=== PATIENT | female | born 1975 | race Caucasian/White ===

== ENCOUNTER 2017-09-24 05:45 | Emergency (ER) | payer BC, MEDICAID ==
[2017-09-24 06:45] VITALS: BP 131/84
[2017-09-24] MEDS ORDERED: Acetaminophen/oxyCODONE 325-5 MG Tab PO ONE (07:16)
[2017-09-24] MEDS ORDERED: Ibuprofen 600 MG Tab PO ONE (07:17)
--- NOTE | 2017-09-24 07:18 | EDM.PDOC ---
ED HPI GENERAL MEDICAL PROBLEM - General Chief Complaint: Lower Extremity Injury/Pain Stated Complaint: ROLLED LEFT ANKLE Time Seen by Provider: 09/24/17 05:51 Source of Information: Reports: Patient History Limitations: Reports: No Limitations - History of Present Illness INITIAL COMMENTS - FREE TEXT/NARRATIVE: Rolled ankle this morning getting ready for work. Has some swelling. Here for evaluation. Onset: Today Onset Date: 09/24/17 Duration: Minutes:, Constant Location: Reports: Lower Extremity, Left Quality: Reports: Ache Severity: Moderate Improves with: Reports: Rest Worsens with: Reports: Movement Context: Reports: Other (Stepped on dog bone this morning.) Associated Symptoms: Reports: No Other Symptoms Treatments OPERATIONS RECRUITER: Reports: Other (see below) (none) - Related Data Allergies Allergy/AdvReac Type Severity Reaction Status Date / Time bee sting Allergy Severe Difficulty Uncoded 09/24/17 06:45 Breathing Home Meds: Home Meds EPINEPHrine [Epipen 2-Johnny] 1 injection SUBCUT DAILY PRN 05/15/14 [History] Loratadine [Claritin] 10 mg PO DAILY PRN 05/18/16 [History] Omeprazole 20 mg PO DAILY 10/24/16 [History] Meclizine [Antivert] 25 mg PO TID PRN 10/26/16 [History] atorvaSTATin [Lipitor] 20 mg PO BEDTIME 10/26/16 [History] metroNIDAZOLE [metroNIDAZOLE 0.75% Gel] 1 film TOP BID 10/26/16 [History] Past Medical History HEENT 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: Allergic Rhinitis, Impaired Vision Other HEENT History: seasonal allergies Cardiovascular 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: High Cholesterol Other Respiratory History: SOB with bee stings Gastrointestinal 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: Cholelithiasis, GERD 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: , Other (See Below) Other OB/BYN History: abnormal cycles Musculoskeletal 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: Arthritis Neurological 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: Migraines, Vertigo Endocrine/Metabolic 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: Diabetes, Type II, Obesity/BMI 30+, Other (See Below) Other Endocrine/Metabolic History: diabetes controlled with diet and exercise Dermatologic 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: Other (See Below) Other Dermatologic History: Rosacea - Infectious Disease History Infectious Disease 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: Chicken Pox - Past Surgical History HEENT Surgical 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: Oral Surgery GI Surgical 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: Cholecystectomy Musculoskeletal Surgical 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: Arthroscopic Knee, Other (See Below) Social & Family History - Family History Family Medical History: Noncontributory - Tobacco Use Smoking Status *Q: Never Smoker Used Tobacco, but Quit: Yes Month Tobacco Last Used: 2012 Second Hand Smoke Exposure: No - Caffeine Use Caffeine Use: Reports: Coffee, Tea - Alcohol Use Days Per Week of Alcohol Use: 0 - Recreational Drug Use Recreational Drug Use: No Review of Systems - Review of Systems Review Of Systems: See Below Constitutional: Reports: No Symptoms Musculoskeletal: Reports: Leg Pain (L ankle pain) Skin: Reports: No Symptoms Neurological: Reports: No Symptoms ED EXAM, GENERAL - Physical Exam Exam: See Below Exam Limited By: No Limitations General Appearance: Alert, WD/WN, No Apparent Distress, Obese Extremities: Other (L ankle swelling present, negative anterior drawer sign. No proximal fibula pain. Minimal lateral foot pain. ) Neurological: Alert, Oriented, CN II-XII Intact, Normal Cognition Course - Vital Signs Last Recorded V/S: Last Vital Signs Temp 36.5 C 09/24/17 06:44 Pulse 89 09/24/17 06:44 Resp 16 09/24/17 06:44 BP 131/84 09/24/17 06:44 Pulse Ox 96 09/24/17 06:44 - Orders/Labs/Meds Orders: Active Orders 24 hr Category Date Time Status Ankle Min 3V Lt [CR] Stat Exams 09/24/17 06:39 Taken Meds: Medications Discontinued Medications Generic Name Dose Route Start Last Admin Trade Name Freq PRN Reason Stop Dose Admin Ibuprofen 600 mg 09/24/17 07:17 Motrin PO 09/24/17 07:18 ONETIME ONE Oxycodone/Acetaminophen 1 tab 09/24/17 07:16 Percocet 325-5 Mg PO 09/24/17 07:17 ONETIME ONE - Radiology Interpretation Free Text/Narrative:: L ankle X-ray-soft tissue swelling, no acute fx's. Old chip fx's present. Air splint applied. Departure - Departure Time of Disposition: 07:30 Disposition: Home, Self-Care 01 Condition: Good Clinical Impression: Ankle sprain Qualifiers: Encounter type: initial encounter Involved ligament of ankle: calcaneofibular ligament Laterality: left Qualified Code(s): S93.412A - Sprain of calcaneofibular ligament of left ankle, initial encounter - Discharge Information Referrals: Laci Gutierrez MD [Primary Care Provider] - Forms: ED Department Discharge
--- NOTE | 2017-09-24 09:20 | CR ---
Ankle Min 3V Lt FINDINGS: There is normal alignment. There is no evidence of acute fracture. There is a corticated cindy ne fragment adjacent to the tip of the fibula which likely reflects an old injury. The ankle mortise appears intact. There is lateral soft tissue swelling. IMPRESSION: Lateral soft tissue swelling without evidence for acute fracture.
== END 2017-09-24 07:43 | disposition home or self-care (01) ==
LOC: JP.ED 05:45
DX: S93.412A Sprain of calcaneofibular ligament of left ankle, initial encounter (principal); E78.00 Pure hypercholesterolemia, unspecified; K21.9 Gastro-esophageal reflux disease without esophagitis; E11.9 Type 2 diabetes mellitus without complications; Z87.891 Personal history of nicotine dependence; Z79.899 Other long term (current) drug therapy; Z91.030 Bee allergy status; X50.9XXA Other and unspecified overexertion or strenuous movements or postures, initial encounter
CPT/HCPCS: 73610; 99284; A9270

== ENCOUNTER 2018-04-21 17:09 | Emergency (ER) | payer BC ==
[2018-04-21 17:21] VITALS: BP 153/103
--- NOTE | 2018-04-21 17:50 | EDM.PDOC ---
ED HPI GENERAL MEDICAL PROBLEM - General Chief Complaint: Respiratory Problem Stated Complaint: DOESN'T FEEL WELL Time Seen by Provider: 04/21/18 17:45 Source of Information: Reports: Patient, Family History Limitations: Reports: No Limitations - History of Present Illness INITIAL COMMENTS - FREE TEXT/NARRATIVE: Woke up with cough today. Has progressively worsened. Now with chest tightness. Has noted headache, voice hoarseness, chills today. Is mildly nauseated. Noted blood pressure was up today. Onset: Today, Sudden Duration: Getting Worse Location: Reports: Chest Quality: Reports: Pressure Severity: Moderate Improves with: Reports: None Worsens with: Reports: Breathing Associated Symptoms: Reports: Chest Pain, Fever/Chills, Headaches, Malaise, Nausea/Vomiting Chest Pain Score (Numeric/FACES): 5 - Related Data Allergies Allergy/AdvReac Type Severity Reaction Status Date / Time bee sting Allergy Severe Difficulty Uncoded 04/21/18 17:30 Breathing Home Meds: Home Meds EPINEPHrine [Epipen 2-Johnny] 1 injection SUBCUT DAILY PRN 05/15/14 [History] Loratadine [Claritin] 10 mg PO DAILY PRN 05/18/16 [History] Omeprazole 20 mg PO DAILY 10/24/16 [History] Meclizine [Antivert] 25 mg PO TID PRN 10/26/16 [History] atorvaSTATin [Lipitor] 20 mg PO BEDTIME 10/26/16 [History] metroNIDAZOLE [metroNIDAZOLE 0.75% Gel] 1 film TOP BID 10/26/16 [History] Acetaminophen/HYDROcodone [[place] 325-5 MG] 1 - 2 tab PO Q6H PRN #15 tab [Rx] FLUoxetine [PROzac] 10 mg PO DAILY 04/21/18 [History] Lisinopril 10 mg PO DAILY 04/21/18 [History] Past Medical History HEENT 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: Allergic Rhinitis, Impaired Vision Other HEENT History: seasonal allergies Cardiovascular 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: High Cholesterol, Hypertension Other Respiratory History: SOB with bee stings Gastrointestinal 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: Cholelithiasis, GERD 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: , Other (See Below) Other OB/BYN History: abnormal cycles Musculoskeletal 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: Arthritis Neurological 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: Migraines, Vertigo Psychiatric 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: Depression Endocrine/Metabolic 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: Diabetes, Type II, Obesity/BMI 30+, Other (See Below) Other Endocrine/Metabolic History: diabetes controlled with diet and exercise Dermatologic 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: Other (See Below) Other Dermatologic History: Rosacea - Infectious Disease History Infectious Disease 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: Chicken Pox - Past Surgical History HEENT Surgical 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: Oral Surgery GI Surgical 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: Cholecystectomy Musculoskeletal Surgical 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: Arthroscopic Knee, Other (See Below) Social & Family History - Family History Family Medical History: Noncontributory - Tobacco Use Smoking Status *Q: Former Smoker Used Tobacco, but Quit: Yes Month/Year Tobacco Last Used: 6 years ago - Caffeine Use Caffeine Use: Reports: Coffee - Recreational Drug Use Recreational Drug Use: No ED ROS GENERAL - Review of Systems Review Of Systems: See Below Constitutional: Reports: Fever, Chills HEENT: Reports: Other (voice hoarseness) Respiratory: Reports: Shortness of Breath, Cough Cardiovascular: Reports: Chest Pain Endocrine: Reports: No Symptoms GI/Abdominal: Reports: Nausea : Reports: No Symptoms Musculoskeletal: Reports: No Symptoms Skin: Reports: No Symptoms Neurological: Reports: No Symptoms Psychiatric: Reports: No Symptoms ED EXAM, GENERAL - Physical Exam Exam: See Below Exam Limited By: No Limitations General Appearance: Alert, WD/WN, No Apparent Distress Ears: Normal External Exam, Normal Canal, Hearing Grossly Normal, Normal TMs Ear Exam: Bilateral Ear: Auricle Normal, Canal Normal, TM normal Nose: Normal Inspection, Normal Mucosa, No Blood Throat/Mouth: Normal Inspection, Normal Lips, Normal Teeth, Normal Gums, Normal Oropharynx, Normal Voice, No Airway Compromise Head: Atraumatic, Normocephalic Neck: Normal Inspection, Supple, Non-Tender, Full Range of Motion Respiratory/Chest: No Respiratory Distress, Lungs Clear, Normal Breath Sounds, No Accessory Muscle Use, Chest Non-Tender Cardiovascular: Normal Peripheral Pulses, Regular Rate, Rhythm, No Edema, No Gallop, No JVD, No Murmur, No Rub GI/Abdominal: Normal Bowel Sounds, Soft, Non-Tender, No Organomegaly, No Distention, No Abnormal Bruit, No Mass Extremities: Normal Inspection, Normal Range of Motion, Non-Tender, Normal Capillary Refill, No Pedal Edema Course - Vital Signs Last Recorded V/S: Last Vital Signs Temp 98.8 F 04/21/18 17:26 Pulse 98 04/21/18 17:26 Resp 16 04/21/18 17:26 BP 153/103 H 04/21/18 17:26 Pulse Ox 96 04/21/18 17:26 - Orders/Labs/Meds Orders: Active Orders 24 hr Category Date Time Status Chest 2V [CR] Stat Exams 04/21/18 17:50 Taken Labs: Laboratory Tests 04/21/18 Range/Units 18:00 WBC 8.5 (4.5-11.0) K/uL RBC 5.02 (3.30-5.50) M/uL Hgb 14.3 (12.0-15.0) g/dL Hct 42.2 (36.0-48.0) % MCV 84 (80-98) fL MCH 29 (27-31) pg MCHC 34 (32-36) % Plt Count 274 (150-400) K/uL Neut % (Auto) 62 (36-66) % Lymph % (Auto) 27 (24-44) % [place] % (Auto) 10 H (2-6) % Eos % (Auto) 2 (2-4) % Baso % (Auto) 0 (0-1) % Departure - Departure Time of Disposition: 18:17 Disposition: Home, Self-Care 01 Condition: Good Clinical Impression: Bronchitis - Discharge Information Instructions: Acute Bronchitis, Adult, [id number] Referrals: Laci Gutierrez MD [Primary Care Provider] - Forms: ED Department Discharge Additional Instructions: CBC normal. Chest xray without effusions or cardiomegaly. Rx for Zpak as directed x 5 days. May use Delsym OTC as needed for cough. Increase fluids. No work x 24 hours. Robitussin AC as needed for cough at bedtime. - Problem List & Annotations (1) Bronchitis SNOMED Code(s): 41358003 Code(s): J40 - BRONCHITIS, NOT SPECIFIED ACUTE OR CHRONIC Status: Acute Priority: Medium Current Visit: Yes - My Orders Last 24 Hours: My Active Orders 04/21/18 17:50 Chest 2V [CR] Stat - Assessment/Plan Last 24 Hours: My Active Orders 04/21/18 17:50 Chest 2V [CR] Stat
--- NOTE | 2018-04-22 10:24 | CR ---
CHEST: 2 view CLINICAL HISTORY:Cough and fever COMPARISON:2007 FINDINGS: Heart size and pulmonary vascularity are normal. Lungs are clear. There are no pleural eff usions.. IMPRESSION: No acute cardiopulmonary process or significant change from prior study
== END 2018-04-21 18:37 | disposition home or self-care (01) ==
LOC: JP.ED 17:09
DX: J40 Bronchitis, not specified as acute or chronic (principal); E78.00 Pure hypercholesterolemia, unspecified; I10 Essential (primary) hypertension; K21.9 Gastro-esophageal reflux disease without esophagitis; E11.9 Type 2 diabetes mellitus without complications; Z91.030 Bee allergy status; Z79.899 Other long term (current) drug therapy; Z87.891 Personal history of nicotine dependence
CPT/HCPCS: 36415; 71046; 71046-26; 85025; 99284

== ENCOUNTER 2018-05-13 19:29 | Emergency (ER) | payer BC ==
[2018-05-13 19:52] VITALS: BP 153/88
--- NOTE | 2018-05-13 20:23 | EDM.PDOC ---
ED HPI GENERAL MEDICAL PROBLEM - General Chief Complaint: Lower Extremity Injury/Pain Stated Complaint: L ANKLE / R KNEE PAIN Time Seen by Provider: 05/13/18 19:56 Source of Information: Reports: Patient History Limitations: Reports: No Limitations - History of Present Illness INITIAL COMMENTS - FREE TEXT/NARRATIVE: 42 yo female presents to the ER with left ankle pain and right knee pain. this AM she medial twisted her left ankle falling onto her right knee. She was able to walk after fall and has walked all day. She took tylenol for pain this AM with relief. past hx of "knee problems" generally healthy right knee/ left ankle Pain Score (Numeric/FACES): 4 - Related Data Allergies Allergy/AdvReac Type Severity Reaction Status Date / Time bee sting Allergy Severe Difficulty Uncoded 05/13/18 19:57 Breathing Home Meds: Home Meds EPINEPHrine [Epipen 2-Johnny] 1 injection SUBCUT DAILY PRN 05/15/14 [History] Loratadine [Claritin] 10 mg PO DAILY PRN 05/18/16 [History] Omeprazole 20 mg PO DAILY 10/24/16 [History] Meclizine [Antivert] 25 mg PO TID PRN 10/26/16 [History] atorvaSTATin [Lipitor] 20 mg PO BEDTIME 10/26/16 [History] metroNIDAZOLE [metroNIDAZOLE 0.75% Gel] 1 film TOP BID 10/26/16 [History] FLUoxetine [PROzac] 10 mg PO DAILY 04/21/18 [History] Lisinopril 10 mg PO DAILY 04/21/18 [History] Past Medical History HEENT 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: Allergic Rhinitis, Impaired Vision Other HEENT History: seasonal allergies Cardiovascular 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: High Cholesterol, Hypertension Other Respiratory History: SOB with bee stings Gastrointestinal 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: Cholelithiasis, GERD 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: , Other (See Below) Other RINK RAT History: abnormal cycles Musculoskeletal 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: Arthritis Neurological 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: Migraines, Vertigo Psychiatric 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: Depression Endocrine/Metabolic 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: Diabetes, Type II, Obesity/BMI 30+, Other (See Below) Other Endocrine/Metabolic History: diabetes controlled with diet and exercise Dermatologic 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: Other (See Below) Other Dermatologic History: Rosacea - Infectious Disease History Infectious Disease 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: Chicken Pox - Past Surgical History HEENT Surgical 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: Oral Surgery GI Surgical 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: Cholecystectomy Musculoskeletal Surgical 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: Arthroscopic Knee Social & Family History - Family History Family Medical History: Noncontributory - Tobacco Use Smoking Status *Q: Never Smoker - Caffeine Use Caffeine Use: Reports: Coffee, Soda - Recreational Drug Use Recreational Drug Use: No Review of Systems - Review of Systems Review Of Systems: See Below Constitutional: Denies: Chills, Fever Respiratory: Denies: Shortness of Breath, Wheezing Cardiovascular: Denies: Chest Pain ED EXAM, GENERAL - Physical Exam Exam: See Below Exam Limited By: No Limitations General Appearance: Alert, WD/WN, No Apparent Distress Respiratory/Chest: No Respiratory Distress Extremities: Joint Swelling (mild left ankle and right knee edema), Other (mild tenderness on palpation lateral left ankle, ROM normal, right knee exam mild medial joint line tenderness. ROM normal) Course - Vital Signs Last Recorded V/S: Last Vital Signs Temp 37.3 C 05/13/18 20:02 Pulse 87 05/13/18 20:02 Resp 16 05/13/18 20:02 BP 153/88 H 05/13/18 20:02 Pulse Ox 97 05/13/18 20:02 - Orders/Labs/Meds Orders: Active Orders 24 hr Category Date Time Status Ankle Min 3V Lt [CR] Stat Exams 05/13/18 20:18 Taken - Re-Assessments/Exams Free Text/Narrative Re-Assessment/Exam: 05/13/18 20:44 preliminary review of ankle x-ray no acute abnormalities. walks without limp. Departure - Departure Time of Disposition: 20:45 Disposition: Home, Self-Care 01 Condition: Good Clinical Impression: Sprain of knee Ankle sprain Qualifiers: Encounter type: initial encounter Involved ligament of ankle: unspecified ligament Laterality: left Qualified Code(s): S93.402A - Sprain of unspecified ligament of left ankle, initial encounter - Discharge Information Instructions: Knee Sprain, Adult Referrals: Laci Gutierrez MD [Primary Care Provider] - Forms: ED Department Discharge Additional Instructions: ice as needed for inflammation ibuprofen 400-600 mg every 6 hours for pain activity as tolerated - My Orders Last 24 Hours: My Active Orders 05/13/18 20:18 Ankle Min 3V Lt [CR] Stat - Assessment/Plan Last 24 Hours: My Active Orders 05/13/18 20:18 Ankle Min 3V Lt [CR] Stat
--- NOTE | 2018-05-14 08:32 | CR ---
Ankle Min 3V Lt CLINICAL HISTORY: Pain, trauma FINDINGS: The soft tissues are mildly swollen. No acute fracture or dislocation is noted. Ankle morti se is intact. Articular surfaces are smooth. The there is calcaneal spurring. There is also ossificat ion at the talar fibular junction. The this is most likely old. An avulsion fracture is felt less lik tarsha. Impression: Soft tissue swelling Ossific density at the talofibular junction is likely chronic. Small avulsion is felt less likely. Cl inical correlation necessary
== END 2018-05-13 20:52 | disposition home or self-care (01) ==
LOC: JP.ED 19:29
DX: S93.402A Sprain of unspecified ligament of left ankle, initial encounter (principal)
CPT/HCPCS: 73610-26-LT; 73610-LT; 99284

== ENCOUNTER 2019-02-27 22:52 | Emergency (ER) | payer BC ==
[2019-02-27 23:12] VITALS: BP 144/83
--- NOTE | 2019-02-27 23:28 | EDM.PDOC ---
ED HPI GENERAL MEDICAL PROBLEM - General Chief Complaint: Lower Extremity Injury/Pain Stated Complaint: LEFT ANKLE SWOLLEN Time Seen by Provider: 02/27/19 23:28 Source of Information: Reports: Patient History Limitations: Reports: No Limitations - History of Present Illness INITIAL COMMENTS - FREE TEXT/NARRATIVE: pt arrived after rolling her left ankle. She was walking her dog and the ankle rolled. She has sig swelling on the lateral aspect. She has pain on the top of her foot. Onset: Today, Sudden Duration: Hour(s): Location: Reports: Lower Extremity, Left Associated Symptoms: Reports: No Other Symptoms Left Foot Pain Score (Numeric/FACES): 5 - Related Data Allergies Allergy/AdvReac Type Severity Reaction Status Date / Time bee sting Allergy Severe Difficulty Uncoded 02/27/19 23:08 Breathing Home Meds: Home Meds EPINEPHrine [Epipen 2-Johnny] 1 injection SUBCUT DAILY PRN 05/15/14 [History] Loratadine [Claritin] 10 mg PO DAILY PRN 05/18/16 [History] Omeprazole 20 mg PO DAILY 10/24/16 [History] Meclizine [Antivert] 25 mg PO TID PRN 10/26/16 [History] atorvaSTATin [Lipitor] 20 mg PO BEDTIME 10/26/16 [History] Lisinopril 10 mg PO DAILY 04/21/18 [History] metFORMIN [Glucophage] 500 mg PO BID 02/27/19 [History] Past Medical History HEENT 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: Allergic Rhinitis, Impaired Vision Other HEENT History: seasonal allergies Cardiovascular 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: High Cholesterol, Hypertension Respiratory 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: None Other Respiratory History: SOB with bee stings Gastrointestinal 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: Cholelithiasis, GERD 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: , 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 MACHINE OPERATOR History: abnormal 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 Musculoskeletal 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: Arthritis Neurological 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: Migraines, Vertigo Psychiatric 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: Depression Endocrine/Metabolic 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: Diabetes, Type II, Obesity/BMI 30+, Other (See Below) Other Endocrine/Metabolic History: diabetes controlled with diet and exercise Dermatologic 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: Other (See Below) Other Dermatologic History: Rosacea - Infectious Disease History Infectious Disease 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: Chicken Pox - Past Surgical History Head Surgeries/Procedures: Reports: None HEENT Surgical 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: Oral Surgery Cardiovascular Surgical 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: None Respiratory Surgical 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: None GI Surgical 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: Cholecystectomy Endocrine Surgical 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: None Neurological Surgical 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: None Musculoskeletal Surgical 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: Arthroscopic Knee Dermatological Surgical 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: None Social & Family History - Family History Family Medical History: Noncontributory - Tobacco Use Smoking Status *Q: Never Smoker Second Hand Smoke Exposure: No - Caffeine Use Caffeine Use: Reports: Soda, Tea - Recreational Drug Use Recreational Drug Use: No Review of Systems - Review of Systems Review Of Systems: See Below Constitutional: Reports: No Symptoms Eyes: Reports: No Symptoms Ears: Reports: No Symptoms Nose: Reports: No Symptoms Mouth/Throat: Reports: No Symptoms Respiratory: Reports: No Symptoms Cardiovascular: Reports: No Symptoms GI/Abdominal: Reports: No Symptoms Genitourinary: Reports: No Symptoms Musculoskeletal: Reports: Other (pain on the rt foot. swelling of the rt ankle laterally. ) Skin: Reports: No Symptoms ED EXAM, GENERAL - Physical Exam Exam: See Below Free Text/Narrative:: pt arrived with pain in the lateral ankle and over the dorsum of the foot. Exam Limited By: No Limitations General Appearance: Alert, Anxious, Mild Distress Extremities: Other ( ft ankle is swollen on the outside. She has discomfort over the foot. ) Neurological: Alert, Oriented Course - Vital Signs Last Recorded V/S: Last Vital Signs Temp 35.9 C 02/27/19 23:11 Pulse 81 02/27/19 23:11 Resp 16 02/27/19 23:11 BP 144/83 H 02/27/19 23:11 Pulse Ox 96 02/27/19 23:11 - Orders/Labs/Meds Orders: Active Orders 24 hr Category Date Time Status Ankle Min 3V Lt [CR] Stat Exams 02/27/19 23:26 Taken Foot 2V Lt [CR] Stat Exams 02/27/19 23:26 Taken - Re-Assessments/Exams Free Text/Narrative Re-Assessment/Exam: 02/28/19 00:18 xrays reveal degenerative changes. No definite fracture seen. Departure - Departure Time of Disposition: 00:15 Disposition: Home, Self-Care 01 Condition: Fair Clinical Impression: Ankle sprain Qualifiers: Encounter type: initial encounter Involved ligament of ankle: unspecified ligament Laterality: left Qualified Code(s): S93.402A - Sprain of unspecified ligament of left ankle, initial encounter - Discharge Information Referrals: Laci Gutierrez MD [Primary Care Provider] - Forms: ED Department Discharge Care Plan Goals: elevate. cool pack to the ankle. pt has crutches at home and will use them, stirup splint, motrin 600mg qid as needed for pain. - My Orders Last 24 Hours: My Active Orders 02/27/19 23:26 Ankle Min 3V Lt [CR] Stat Foot 2V Lt [CR] Stat - Assessment/Plan Last 24 Hours: My Active Orders 02/27/19 23:26 Ankle Min 3V Lt [CR] Stat Foot 2V Lt [CR] Stat
--- NOTE | 2019-02-28 07:01 | CRLCR ---
Final Report: Indication: Injury Technique: Three views of the left ankle Comparison: 05/13/2018 Findings: Bones: No acute fracture or dislocation. A plantar calcaneal spur and a posterior calcaneal enthesophyte. Joint spaces: Unremarkable. Soft tissues: Soft tissue swelling. Corticated chronic calcifications again seen inferior to the lateral malleolus, anterior and posterior to the tibiotalar joint. Impression: No evidence of an acute fracture or dislocation. Dictated by George Lara MD @ 02/28/2019 12:22:29 AM Dictated by: George Lara MD @ 02/28/2019 00:22:33 Signed by: George Lara MD @02/28/2019 12:22:33 AM (Electronic Signature) [email or web address]
--- NOTE | 2019-02-28 07:02 | CRLCR ---
Final Report: Indication: Injury Technique: Two views of the left foot Comparison: None available Findings: Bones: No acute fracture or dislocation. Joint spaces: Unremarkable. Soft tissues: Mild dorsal soft tissue swelling. A small calcification adjacent to the lateral aspect of the 4th proximal phalanx distally, nonspecific, possibly related to old trauma. Impression: No acute fracture or dislocation. A small calcification adjacent to the 4th proximal phalanx could be related to old trauma. Correlate for focal tenderness. Dictated by George Lara MD @ 02/28/2019 12:25:42 AM Dictated by: George Lara MD @ 02/28/2019 00:25:58 Signed by: George Lara MD @02/28/2019 12:25:58 AM (Electronic Signature) ELICIA
== END 2019-02-28 00:30 | disposition home or self-care (01) ==
LOC: JP.ED 22:52
DX: S93.402A Sprain of unspecified ligament of left ankle, initial encounter (principal); E78.00 Pure hypercholesterolemia, unspecified; I10 Essential (primary) hypertension; F32.9 Major depressive disorder, single episode, unspecified; E11.9 Type 2 diabetes mellitus without complications; X50.1XXA Overexertion from prolonged static or awkward postures, initial encounter; Z79.899 Other long term (current) drug therapy; Z91.030 Bee allergy status; Z79.84 Long term (current) use of oral hypoglycemic drugs
CPT/HCPCS: 73610-LT; 73620-LT; 99283-25

== ENCOUNTER 2019-05-06 17:40 | Emergency (ER) | payer BC ==
[2019-05-06 18:28] VITALS: BP 155/98; PULSE 92
--- NOTE | 2019-05-06 18:39 | EDM.PDOC ---
ED HPI GENERAL MEDICAL PROBLEM - General Chief Complaint: Back Pain or Injury Stated Complaint: BACK SPASM Time Seen by Provider: 05/06/19 18:10 Source of Information: Reports: Patient, Family History Limitations: Reports: No Limitations - History of Present Illness INITIAL COMMENTS - FREE TEXT/NARRATIVE: 43-year-old female was walking her dog a week ago, when it pulled her forward and she spun around landing on her backside. Since that time she's had some persistent low back and mid back discomfort with some intermittent lower extremity paresthesias bilaterally. No incontinence. She was evaluated at the clinic several days ago, x-rays were taken and were "negative". She continues to have spasm and pain and had difficulty getting to work today. No incontinence. She is taking cyclobenzaprine and anti-inflammatories without relief. Onset: Sudden Duration: Day(s): (7 days ago) Location: Reports: Back Associated Symptoms: Reports: Other (Some bilateral symmetric lower extremity paresthesias, no weakness) Back Pain Score (Numeric/FACES): 7 - Related Data Allergies Allergy/AdvReac Type Severity Reaction Status Date / Time bee sting Allergy Severe Difficulty Uncoded 05/06/19 17:58 Breathing Home Meds: Home Meds EPINEPHrine [Epipen 2-Johnny] 1 injection SUBCUT DAILY PRN 05/15/14 [History] Loratadine [Claritin] 10 mg PO DAILY PRN 05/18/16 [History] Omeprazole 20 mg PO DAILY 10/24/16 [History] Meclizine [Antivert] 25 mg PO TID PRN 10/26/16 [History] atorvaSTATin [Lipitor] 20 mg PO BEDTIME 10/26/16 [History] Lisinopril 10 mg PO DAILY 04/21/18 [History] metFORMIN [Glucophage] 500 mg PO BID 02/27/19 [History] Past Medical History HEENT 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: Allergic Rhinitis, Impaired Vision Other HEENT History: seasonal allergies Cardiovascular 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: High Cholesterol, Hypertension Respiratory 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: None Other Respiratory History: SOB with bee stings Gastrointestinal 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: Cholelithiasis, GERD TOUCH UP WORKER 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: , Other (See Below) Other TOUCH UP WORKER History: abnormal cycles Musculoskeletal 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: Arthritis, Other (See Below) Other Musculoskeletal History: past back pain Neurological 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: Migraines, Vertigo Psychiatric 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: Depression Endocrine/Metabolic 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: Diabetes, Type II, Obesity/BMI 30+, Other (See Below) Other Endocrine/Metabolic History: diabetes controlled with diet and exercise Dermatologic 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: Other (See Below) Other Dermatologic History: Rosacea - Infectious Disease History Infectious Disease 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: Chicken Pox - Past Surgical History Head Surgeries/Procedures: Reports: None HEENT Surgical 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: Oral Surgery Cardiovascular Surgical 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: None Respiratory Surgical 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: None GI Surgical 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: Cholecystectomy Endocrine Surgical 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: None Neurological Surgical 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: None Musculoskeletal Surgical 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: Arthroscopic Knee Dermatological Surgical 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: None Social & Family History - Family History Family Medical History: Noncontributory - Tobacco Use Smoking Status *Q: Former Smoker Years of Tobacco use: 15 Packs/Tins Daily: 1 Used Tobacco, but Quit: Yes Month/Year Tobacco Last Used: 2013 Second Hand Smoke Exposure: No - Caffeine Use Caffeine Use: Reports: Coffee, Soda - Recreational Drug Use Recreational Drug Use: No ED ROS GENERAL - Review of Systems Review Of Systems: See Below Constitutional: Denies: Fever, Chills Respiratory: Denies: Shortness of Breath Cardiovascular: Denies: Chest Pain GI/Abdominal: Denies: Abdominal Pain, Nausea, Vomiting : Reports: No Symptoms Skin: Denies: Rash Neurological: Reports: Paresthesia (Both lower extremities, especially distally) ED EXAM,LOWER BACK PAIN/INJURY - Physical Exam Exam: See Below Exam Limited By: No Limitations General Appearance: Alert, No Apparent Distress, Other (Looks uncomfortable but not distressed) Head: Atraumatic Respiratory/Chest: No Respiratory Distress Back Exam: Paraspinal Tenderness (Of the lower thoracic spine and lumbar spine area. No increased pain with rotation against resistance, but standing from a sitting position is difficult with increased pain) Neurological: Alert, No Motor/Sensory Deficits, Oriented x 3 DTR - Lower Extremities: 2+: Knee (R), Knee (L) Psychiatric: Normal Affect Skin Exam: Warm, Dry Course - Vital Signs Last Recorded V/S: Last Vital Signs Temp 98.9 F 05/06/19 18:04 Pulse 92 05/06/19 18:04 Resp 16 05/06/19 18:04 BP 155/98 H 05/06/19 18:04 Pulse Ox 97 05/06/19 18:04 - Re-Assessments/Exams Free Text/Narrative Re-Assessment/Exam: 05/06/19 18:27 Continue with current medications, take 6 pills of prednisone daily for 5 consecutive days. Use stronger pain medicine as directed if needed, increase activity as tolerated. Call for an appointment on Sunday with Dr. Gutierrez for recheck as you may need further evaluation such as MRI. Return sooner if worsening such as incontinence or weakness in the lower extremities Departure - Departure Time of Disposition: 18:53 Disposition: Home, Self-Care 01 Condition: Good Clinical Impression: Low back strain Qualifiers: Encounter type: initial encounter Qualified Code(s): S39.012A - Strain of muscle, fascia and tendon of lower back, initial encounter - Discharge Information Instructions: Low Back Sprain Referrals: Laci Gutierrez MD [Primary Care Provider] - Forms: ED Department Discharge Care Plan Goals: Continue current medications. Take 6 pills of prednisone with your first meal of the day for 5 consecutive days. Increase activity as tolerated, and use stronger pain medications as prescribed if needed when trying to rest. Recheck on Sunday if possible. Return sooner if worsening such as incontinence or weakness in the lower extremities.
== END 2019-05-06 18:53 | disposition home or self-care (01) ==
LOC: JP.ED 17:40
DX: S39.012A Strain of muscle, fascia and tendon of lower back, initial encounter (principal); E78.00 Pure hypercholesterolemia, unspecified; E11.9 Type 2 diabetes mellitus without complications; E66.9 Obesity, unspecified; I10 Essential (primary) hypertension; Z79.84 Long term (current) use of oral hypoglycemic drugs; Z79.899 Other long term (current) drug therapy; X50.9XXA Other and unspecified overexertion or strenuous movements or postures, initial encounter; Z68.41 Body mass index [BMI] 40.0-44.9, adult
CPT/HCPCS: 99283

== ENCOUNTER 2019-08-17 15:40 | Emergency (ER) | payer BC ==
[2019-08-17] MEDS ORDERED: Ibuprofen 600 MG Tab PO ONE (15:57)
--- NOTE | 2019-08-17 16:00 | EDM.PDOC ---
ED HPI GENERAL MEDICAL PROBLEM - General Chief Complaint: Lower Extremity Injury/Pain Stated Complaint: right foot pain Time Seen by Provider: 08/17/19 15:41 Source of Information: Reports: Patient History Limitations: Reports: No Limitations - History of Present Illness INITIAL COMMENTS - FREE TEXT/NARRATIVE: Jimbo is a 43 year old female who presents to the ED today with c/o right ankle pain. Patient was out mowing the lawn when her dog wrapped around her right ankle with his metal chain and tightened around ankle. Pain with weight bearing , some numbness to right foot, denies any foot pain. Has not taken any medications for her pain. Onset: Today, Sudden Right Ankle Pain Score (Numeric/FACES): 4 - Related Data Allergies Allergy/AdvReac Type Severity Reaction Status Date / Time bee sting Allergy Severe Difficulty Uncoded 08/17/19 15:57 Breathing Home Meds: Home Meds EPINEPHrine [Epipen 2-Johnny] 1 injection SUBCUT DAILY PRN 05/15/14 [History] Loratadine [Claritin] 10 mg PO DAILY PRN 05/18/16 [History] Omeprazole 20 mg PO DAILY 10/24/16 [History] Meclizine [Antivert] 25 mg PO TID PRN 10/26/16 [History] atorvaSTATin [Lipitor] 20 mg PO BEDTIME 10/26/16 [History] Lisinopril 10 mg PO DAILY 04/21/18 [History] metFORMIN [Glucophage] 500 mg PO BID 02/27/19 [History] Past Medical History HEENT 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: Allergic Rhinitis, Impaired Vision Other HEENT History: seasonal allergies Cardiovascular 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: High Cholesterol, Hypertension Respiratory 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: None Other Respiratory History: SOB with bee stings Gastrointestinal 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: Cholelithiasis, GERD 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 WIRER 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: , Other (See Below) Other SHIP WIRER History: abnormal cycles Musculoskeletal 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: Arthritis, Other (See Below) Other Musculoskeletal History: past back pain Neurological 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: Migraines, Vertigo Psychiatric 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: Depression Endocrine/Metabolic 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: Diabetes, Type II, Obesity/BMI 30+, Other (See Below) Other Endocrine/Metabolic History: diabetes controlled with diet and exercise Dermatologic 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: Other (See Below) Other Dermatologic History: Rosacea - Infectious Disease History Infectious Disease 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: Chicken Pox - Past Surgical History Head Surgeries/Procedures: Reports: None HEENT Surgical 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: Oral Surgery Cardiovascular Surgical 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: None Respiratory Surgical 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: None GI Surgical 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: Cholecystectomy Endocrine Surgical 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: None Neurological Surgical 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: None Musculoskeletal Surgical 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: Arthroscopic Knee Dermatological Surgical 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: None Social & Family History - Family History Family Medical History: Noncontributory - Caffeine Use Caffeine Use: Reports: Coffee, Soda Review of Systems - Review of Systems Review Of Systems: ROS reveals no pertinent complaints other than HPI. ED EXAM, GENERAL - Physical Exam Exam: See Below Exam Limited By: No Limitations General Appearance: Alert, WD/WN, No Apparent Distress Throat/Mouth: Normal Inspection Head: Atraumatic Neck: Normal Inspection, Supple, Non-Tender Respiratory/Chest: No Respiratory Distress Cardiovascular: Regular Rate, Rhythm Peripheral Pulses: 2+: Dorsalis Pedis (R) Back Exam: Normal Inspection Extremities: Other (right anterior ankle erythematous and bruised with pain to anterior ankle and lateral malleolar region) Neurological: Alert, Oriented, CN II-XII Intact Psychiatric: Normal Affect, Normal Mood Skin Exam: Warm, Dry, Intact Lymphatic: No Adenopathy Course - Vital Signs Last Recorded V/S: Last Vital Signs Temp 37 C 08/17/19 15:55 Pulse 100 08/17/19 15:55 Resp 18 08/17/19 15:55 BP 132/82 08/17/19 15:55 Pulse Ox 95 08/17/19 15:55 Jimbo is a 43 year old female, presents with ankle injury, please refer to HPI and focused exam. Xray negative for fracture, exam consistent with soft tissue swelling/contusion. Patient placed in CAM Boot, RICE encouraged, follow up as needed. Reasons to return discussed, patient agreeable and discharged in stable condition. - Orders/Labs/Meds Meds: Medications Discontinued Medications Generic Name Dose Route Start Last Admin Trade Name Seanq PRN Reason Stop Dose Admin Ibuprofen 600 mg 08/17/19 15:57 08/17/19 16:02 Motrin PO 08/17/19 15:58 600 mg ONETIME ONE Administration Departure - Departure Time of Disposition: 17:00 Disposition: Home, Self-Care 01 Condition: Good Clinical Impression: Contusion of ankle, right Qualifiers: Encounter type: initial encounter Qualified Code(s): S90.01XA - Contusion of right ankle, initial encounter - Discharge Information Instructions: Contusion, [id number] Referrals: Laci Gutierrez MD [Primary Care Provider] - Forms: ED Department Discharge Additional Instructions: Ice for 20 minutes at a time every 2-4 hours. Ibuprofen/Tylenol for pain. Boot for the next week. Follow up in clinic if symptoms persist over a week from now.
[2019-08-17 16:02] VITALS: BP 132/82; PULSE 100
--- NOTE | 2019-08-17 16:44 | CRLCR ---
INDICATION: Anterolateral pain following trauma TECHNIQUE: Four views right ankle COMPARISON: None FINDINGS: Bones: Alignment is normal. No fractures. Large dorsal and plantar calcaneal spurs. Joint spaces: Unremarkable. Soft tissues: Soft tissue edema anterior to the ankle joint. IMPRESSION: Soft tissue edema anterior to the ankle joint. No fractures. Dictated by Laci Dangelo MD @ 08/17/2019 4:43:02 PM Dictated by: Laci Dangelo MD @ 08/17/2019 16:43:07 (Electronically Signed)
== END 2019-08-17 17:11 | disposition home or self-care (01) ==
LOC: JP.ED 15:40
DX: S90.01XA Contusion of right ankle, initial encounter (principal); I10 Essential (primary) hypertension; E11.9 Type 2 diabetes mellitus without complications; K21.9 Gastro-esophageal reflux disease without esophagitis; E78.00 Pure hypercholesterolemia, unspecified; E66.9 Obesity, unspecified; Z79.899 Other long term (current) drug therapy; Z91.030 Bee allergy status; Z79.84 Long term (current) use of oral hypoglycemic drugs; Z68.41 Body mass index [BMI] 40.0-44.9, adult; X58.XXXA Exposure to other specified factors, initial encounter; Y93.89 Activity, other specified
CPT/HCPCS: 73610-RT; 99283-25; A9270-GY

== ENCOUNTER 2019-11-11 08:04 | Day surgery (SDC) | payer BC ==
[2019-11-11] MEDS ORDERED: Midazolam 1 MG/ML 2 ML SDV ONE (09:03)
[2019-11-11] MEDS ORDERED: fentaNYL 100 MCG/2 ML SDV ONE (09:03)
[2019-11-11] MEDS ORDERED: Propofol 200 MG/20 ML SDV ONE (09:03)
[2019-11-11] MEDS ORDERED: Sodium Chloride 0.9% 1,000 ML IV SCH (09:15)
[2019-11-11 11:00] VITALS: BP 107/72; PULSE 90
--- NOTE | 2019-11-12 11:53 | OR ---
DATE OF PROCEDURE: 11/11/2019 SURGEON: Shen Bear MD PROCEDURE: Colonoscopy. FINDINGS: Normal colonoscopy, except for mild external hemorrhoid. COMPLICATIONS: None. AUTOMATIC CIGAR WRAPPER TENDER: None. ANESTHESIA: MAC. PREOPERATIVE DIAGNOSIS: Gastrointestinal bleeding. POSTOPERATIVE DIAGNOSIS: Gastrointestinal bleeding. RISKS: Risks, benefits, alternatives, and limitations including, but not limited to infection, bleeding, and perforation were explained to the patient, who wished to proceed. PROCEDURE IN DETAIL: The patient was placed in left lateral decubitus position. Digital rectal exam was performed without abnormality. The scope was introduced and advanced atraumatically into and through the ileocecal valve. Within the ileum, there was no evidence of inflammation or abnormalities. The scope was brought back through the ascending, transverse, descending colon, and retroflexed. No masses. No polyps. No old or new blood. No diverticulosis. No enlarged internal hemorrhoids. No evidence of colitis or abnormality. No bleeding etiology and no active blood or old blood. Shen Bear MD /[id number]
== END 2019-11-11 11:23 | disposition home or self-care (01) ==
LOC: JP.SDS 08:04
PROVIDERS: ATTEND Surgery
DX: K92.2 Gastrointestinal hemorrhage, unspecified (principal); K64.8 Other hemorrhoids; K21.9 Gastro-esophageal reflux disease without esophagitis; E78.5 Hyperlipidemia, unspecified; I10 Essential (primary) hypertension; E11.9 Type 2 diabetes mellitus without complications; E66.9 Obesity, unspecified; Z91.030 Bee allergy status; Z68.41 Body mass index [BMI] 40.0-44.9, adult
CPT/HCPCS: 45378; 82962; J2250; J2704; J3010; J7030

== ENCOUNTER 2019-12-02 02:53 | Emergency (ER) | payer BC ==
[2019-12-02 03:11] VITALS: BP 130/84; PULSE 97
--- NOTE | 2019-12-02 03:51 | EDM.PDOC ---
ED HPI GENERAL MEDICAL PROBLEM - General Chief Complaint: General Stated Complaint: SORE THROAT,BODY ACHES Time Seen by Provider: 12/02/19 03:50 Source of Information: Reports: Patient History Limitations: Reports: No Limitations - History of Present Illness INITIAL COMMENTS - FREE TEXT/NARRATIVE: 44 yo presents with concerns of headache, sore throat, cough, muscle aches Symptoms started yesterday No fever No neck stiffness. No significant dyspnea She is concerned she may have the flu throat Pain Score (Numeric/FACES): 4 headache Pain Score (Numeric/FACES): 8 - Related Data Allergies Allergy/AdvReac Type Severity Reaction Status Date / Time bee sting Allergy Severe Difficulty Uncoded 12/02/19 03:07 Breathing Home Meds: Home Meds EPINEPHrine [Epipen 2-Johnny] 1 injection SUBCUT ASDIRECTED PRN 05/15/14 [History] Loratadine [Claritin] 10 mg PO DAILY PRN 05/18/16 [History] Omeprazole 20 mg PO DAILY 10/24/16 [History] Meclizine [Antivert] 25 mg PO TID PRN 10/26/16 [History] atorvaSTATin [Lipitor] 20 mg PO BEDTIME 10/26/16 [History] Lisinopril 10 mg PO DAILY 04/21/18 [History] metFORMIN [Glucophage] 500 mg PO BID 02/27/19 [History] Cyclobenzaprine [Flexeril] 10 mg PO TID PRN 09/30/19 [History] FLUoxetine [PROzac] 10 mg PO DAILY 09/30/19 [History] Ondansetron [Zofran ODT] 4 mg PO Q4H PRN 09/30/19 [History] Pantoprazole Sodium [Protonix] 40 mg PO DAILY 09/30/19 [History] Past Medical History HEENT 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: Allergic Rhinitis, Impaired Vision Other HEENT History: seasonal allergies Cardiovascular 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: High Cholesterol, Hypertension Respiratory 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: None Other Respiratory History: SOB with bee stings Gastrointestinal 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: Cholelithiasis, GERD, Hemorrhoids PULPIT OPERATOR 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: , Other (See Below) Other PULPIT OPERATOR History: abnormal cycles Musculoskeletal 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: Arthritis, Other (See Below) Other Musculoskeletal History: past back pain Neurological 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: Migraines, Vertigo Psychiatric 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: Depression Endocrine/Metabolic 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: Diabetes, Type II, Obesity/BMI 30+, Other (See Below) Other Endocrine/Metabolic History: diabetes controlled with diet and exercise Dermatologic 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: Other (See Below) Other Dermatologic History: Rosacea - Infectious Disease History Infectious Disease 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: Chicken Pox - Past Surgical History Head Surgeries/Procedures: Reports: None HEENT Surgical 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: Oral Surgery Cardiovascular Surgical 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: None Respiratory Surgical 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: None GI Surgical 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: Cholecystectomy, EGD Endocrine Surgical 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: None Neurological Surgical 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: None Musculoskeletal Surgical 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: Arthroscopic Knee Dermatological Surgical 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: None Social & Family History - Family History Family Medical History: Noncontributory - Tobacco Use Smoking Status *Q: Former Smoker Used Tobacco, but Quit: Yes Month/Year Tobacco Last Used: 2012 - Caffeine Use Caffeine Use: Reports: Coffee, Soda - Recreational Drug Use Recreational Drug Use: No ED ROS GENERAL - Review of Systems Review Of Systems: See Below Constitutional: Reports: No Symptoms HEENT: Reports: Throat Pain Respiratory: Reports: Cough. Denies: Shortness of Breath Cardiovascular: Reports: No Symptoms Endocrine: Reports: No Symptoms GI/Abdominal: Reports: No Symptoms : Reports: No Symptoms Musculoskeletal: Reports: Muscle Pain Skin: Reports: No Symptoms Neurological: Reports: Headache Psychiatric: Reports: No Symptoms Hematologic/Lymphatic: Reports: No Symptoms Immunologic: Reports: No Symptoms ED EXAM, GENERAL - Physical Exam Exam: See Below Exam Limited By: No Limitations General Appearance: Alert, No Apparent Distress Nose: Normal Inspection Throat/Mouth: Other (oropharyngeal erythema) Head: Atraumatic, Normocephalic Neck: Normal Inspection. No: Limited Range of Motion Respiratory/Chest: Lungs Clear Cardiovascular: Regular Rate, Rhythm GI/Abdominal: Soft, Non-Tender Back Exam: Normal Inspection Extremities: Normal Inspection Neurological: Alert, Oriented Psychiatric: Normal Affect, Normal Mood Skin Exam: Warm, Dry Course - Vital Signs Last Recorded V/S: Last Vital Signs Temp 36.6 C 12/02/19 03:11 Pulse 97 12/02/19 03:11 Resp 18 12/02/19 03:11 BP 130/84 12/02/19 03:11 Pulse Ox 94 L 12/02/19 03:11 - Orders/Labs/Meds Orders: Active Orders 24 hr Category Date Time Status CULTURE STREP A CONFIRMATION [RM] Stat Lab 12/02/19 03:35 Results STREP SCRN A RAPID W CULT CONF [RM] Stat Lab 12/02/19 03:35 Results - Re-Assessments/Exams Free Text/Narrative Re-Assessment/Exam: 44 yo presents with constellation of symptoms consistent with viral illness Normal vitals. No concerning exam findings. Flu negative Safe for discharge with supportive cares 12/02/19 05:58 Departure - Departure Time of Disposition: 04:00 Disposition: Home, Self-Care 01 Clinical Impression: Viral syndrome - Discharge Information Instructions: Viral Illness, Adult Referrals: Laci Gutierrez MD [Primary Care Provider] - Forms: ED Department Discharge Additional Instructions: You are sick from a viral illness. Antibiotics do not work for this. Please push fluids. Use tylenol and ibuprofen for your discomfort. Sepsis Event Note - Evaluation Sepsis Screening Result: No Definite Risk - Focused Exam Vital Signs: Vital Signs Temp Pulse Resp BP Pulse Ox 12/02/19 03:11 36.6 C 97 18 130/84 94 L Date Exam was Performed: 12/02/19 Time Exam was Performed: 05:55 - My Orders Last 24 Hours: My Active Orders 12/02/19 03:35 CULTURE STREP A CONFIRMATION [RM] Stat STREP SCRN A RAPID W CULT CONF [RM] Stat - Assessment/Plan Last 24 Hours: My Active Orders 12/02/19 03:35 CULTURE STREP A CONFIRMATION [RM] Stat STREP SCRN A RAPID W CULT CONF [RM] Stat
== END 2019-12-02 04:13 | disposition home or self-care (01) ==
LOC: JP.ED 02:53
DX: B34.9 Viral infection, unspecified (principal); I10 Essential (primary) hypertension; E78.00 Pure hypercholesterolemia, unspecified; E11.9 Type 2 diabetes mellitus without complications; E66.9 Obesity, unspecified; K21.9 Gastro-esophageal reflux disease without esophagitis; F32.9 Major depressive disorder, single episode, unspecified; Z91.030 Bee allergy status; Z79.899 Other long term (current) drug therapy; Z79.84 Long term (current) use of oral hypoglycemic drugs; Z68.1 Body mass index [BMI] 19.9 or less, adult; Z87.891 Personal history of nicotine dependence
CPT/HCPCS: 87081; 87804; 87804-59; 87880-QW; 99284

== ENCOUNTER 2020-07-26 08:10 | Day surgery (SDC) | payer BC, OTHER ==
[2020-07-26] MEDS: Dextrose 5%-Lactated Ringers 1,000 ML IV SCH (08:40)
[2020-07-26] MEDS ORDERED: Propofol 200 MG/20 ML SDV ONE (10:13)
[2020-07-26] MEDS ORDERED: Midazolam 1 MG/ML 2 ML SDV ONE (10:14)
[2020-07-26] MEDS ORDERED: fentaNYL 100 MCG/2 ML SDV ONE (10:14)
[2020-07-26] MEDS: Glycopyrrolate 0.2 MG/ML 2 ML SDV IVPUSH ONE (10:20)
[2020-07-26] MEDS: Ondansetron 4 MG/2 ML SDV IVPUSH ONE (10:53)
[2020-07-26 11:49] VITALS: BP 125/81; PULSE 91
--- NOTE | 2020-07-30 14:02 | OR ---
DATE OF PROCEDURE: 07/26/2020 SURGEON: Barber Lopez MD PREOPERATIVE DIAGNOSIS: Epigastric pain. POSTOPERATIVE DIAGNOSES: 1. Epigastric pain associated with diffuse bile gastritis. 2. Multiple fundic gland polyps. OPERATIVE PROCEDURE: Esophagogastroduodenoscopy with: 1. Biopsies of antrum for CLOtest (00368). 2. Gastric polypectomy (68887). ANESTHESIA: IV sedation. INDICATION FOR PROCEDURE: A 44-year-old female presenting with some ongoing epigastric pain. She does have history of reflux disease and has been on proton pump inhibitors. The plan is to proceed with upper GI endoscopy with biopsies as indicated. Potential risks including bleeding and perforation were discussed, and the patient wishes to proceed. DETAILS OF PROCEDURE: The patient was taken to the operating room and placed in a left lateral decubitus position. IV sedation was initiated, after which the upper GI endoscope was passed orally through the length of the esophagus into the stomach with retroflexion view of the fundus, thereafter through the pyloric channel and into the proximal duodenum. Findings included normal hypopharynx, larynx, upper esophageal sphincter, and esophageal body. At the EG junction, some mild degree of hiatal hernia was present, but no significant inflammation was grossly seen in the distal esophagus, and there was no upward extension of the gastroesophageal junction mucosal line. In the stomach, the primary finding was that of a fair bit of retained bile with what appeared to be a diffuse bile gastritis with entire gastric lining being somewhat reddened. This was more prominent in the body and antrum. There were no erosions or ulcers. There were multiple fundic gland polyps within the fundus and body of the stomach consistent with long-term PPI use. The pyloric channel and duodenum at the junction of third and fourth portions were otherwise unremarkable. At this point, biopsies obtained from the antrum and sent for CLOtest for H. pylori using snare technique and the larger of the fundic gland polyps was excised and retrieved as a specimen to confirm that these were not something other than benign fundic gland polyps and biopsy and polypectomy sites were seen and the procedure then concluded. At this point, we will initiate some cytoprotective approach to the gastritis via Carafate 1 g q.i.d. to be taken on an empty stomach. We will have her follow up with Dr. Gutierrez in 2 to 3 weeks, and if patient is intolerant of the Carafate either in terms of the medication itself or not being able to comply with frequency of use, some other cytoprotective agent might be useful as well. Barber Lopez MD /[id number]
== END 2020-07-26 11:56 | disposition home or self-care (01) ==
LOC: JP.SDS 08:10
PROVIDERS: ATTEND Surgery
DX: K31.7 Polyp of stomach and duodenum (principal); K29.70 Gastritis, unspecified, without bleeding; K44.9 Diaphragmatic hernia without obstruction or gangrene; K21.9 Gastro-esophageal reflux disease without esophagitis; I10 Essential (primary) hypertension; E11.9 Type 2 diabetes mellitus without complications; E66.9 Obesity, unspecified; Z91.030 Bee allergy status; Z68.41 Body mass index [BMI] 40.0-44.9, adult
CPT/HCPCS: 43239; 43251; 87081; J2250; J2405; J2704; J3010; J3490; J7121

== ENCOUNTER 2023-12-04 04:33 | Emergency (ER) | payer BC ==
[2023-12-04] MEDS: Sodium Chloride 0.9% 1,000 ML IV ONE (06:30)
[2023-12-04] MEDS ORDERED: Sodium Chloride 0.9% 10 ML Syringe FLUSH PRN (06:30)
[2023-12-04] MEDS: Acetaminophen 325 MG Tab PO ONE (07:50)
[2023-12-04] MEDS: Ondansetron 4 MG/2 ML SDV IVPUSH ONE (07:50)
[2023-12-04 11:20] LABS: BASOPHILS ABSOLUTE AUTO 0.02 K/uL (0.00-0.10); BASOPHILS PERCENT AUTO 0.3 % (0.1-1.3); EOSINOPHILS ABSOLUTE AUTO 0.09 K/uL (0.00-0.40); EOSINOPHILS PERCENT AUTO 1.1 % (0.0-5.4); IMMATURE GRAN ABSOLUTE AUTO 0.04 K/uL (0.00-0.23); IMMATURE GRAN PERCENT AUTO 0.5 % (0.0-0.7); LYMPHOCYTES ABSOLUTE AUTO 2.21 K/uL (0.8-3.3); LYMPHOCYTES PERCENT AUTO 27.9 % (11.4-47.7); MEAN CORPUSCULAR HEMOGLOBIN 28.6 pg (31.6-35.5); MEAN CORPUSCULAR HGB CONC 34.3 g/dL (31.6-35.5); MEAN CORPUSCULAR VOLUME 83.3 fL (81.4-99.0); MONOCYTES ABSOLUTE AUTO 0.73 K/uL (0.20-0.90); MONOCYTES PERCENT AUTO 9.2 % (3.3-12.6); NEUTROPHILS ABSOLUTE AUTO 4.83 K/uL (1.0-7.6); PLATELET COUNT,PLT 311 K/uL (130-375); WHITE BLOOD CELL COUNT,WBC 7.9 K/uL (3.2-11.0)
[2023-12-04 11:24] LABS: HEMATOCRIT 40.8 % (34.3-46.0)
[2023-12-04 11:25] LABS: ANION GAP 12.5 mmol/L (5.0-14.0); BLOOD UREA NITROGEN,BUN 13 mg/dL (7-18); CALCIUM 8.3 mg/dL (8.5-10.1); CARBON DIOXIDE,CO2 23 mmol/L (21-32); CHLORIDE,CL 100 mmol/L (100-108); CREATININE 0.8 mg/dL (0.6-1.0); GLUCOSE RANDOM 176 mg/dL (74-106); POTASSIUM,K 3.5 mmol/L (3.6-5.2); SODIUM,NA 135 mmol/L (140-148)
[2023-12-04 11:26] LABS: ESTIMATED GFR 86 mL/min (>60)
[2023-12-04] MEDS: Sodium Chloride 0.9% 80 ML IV SCH (11:26)
[2023-12-04] MEDS: Iopamidol 612 MG/ML 100 ML Bottle IV PRN (11:26)
[2023-12-04 13:18] VITALS: BP 115/59; PULSE 85
== END 2023-12-04 10:15 ==
LOC: JP.ED 04:33
DX: K52.9 Noninfective gastroenteritis and colitis, unspecified (principal)
CPT/HCPCS: 36415; 74177; 80048; 85025; 87493; 96361; 96374; 99283; 99284; A9270; J2405; J3490; J7040; Q9967

== ENCOUNTER 2025-03-25 08:01 | Day surgery (SDC) | payer BC ==
[2025-03-25] MEDS ORDERED: Glycopyrrolate 0.2 MG/ML 5 ML MDV ONE (08:10)
[2025-03-25] MEDS ORDERED: Succinylcholine 200 MG/10 ML MDV ONE (08:10)
[2025-03-25] MEDS ORDERED: Dexamethasone 4 MG/ML SDV ONE (08:10)
[2025-03-25] MEDS ORDERED: Ondansetron 4 MG/2 ML SDV ONE (08:10)
[2025-03-25] MEDS ORDERED: Rocuronium 50 MG/5 ML Vial ONE (08:10)
[2025-03-25] MEDS ORDERED: Neostigmine Methylsulfate 10 MG/10 ML MDV ONE (08:10)
[2025-03-25] MEDS ORDERED: Propofol 200 MG/20 ML SDV ONE (08:10)
[2025-03-25] MEDS ORDERED: fentaNYL 250 MCG/5 ML SDV ONE (08:11)
[2025-03-25] MEDS ORDERED: ceFAZolin 2 GM in Sodium Chloride 0.9% 100 ML IV ONE (08:20)
[2025-03-25 08:33] LABS: HEMATOCRIT 41.9 % (34.3-46.0); HEMOGLOBIN 13.7 g/dL (11.2-15.5); MEAN CORPUSCULAR HEMOGLOBIN 29.1 pg (31.6-35.5); MEAN CORPUSCULAR HGB CONC 32.7 g/dL (31.6-35.5); MEAN CORPUSCULAR VOLUME 89.1 fL (81.4-99.0); RED BLOOD CELL COUNT 4.7 M/uL (3.77-5.24); WHITE BLOOD CELL COUNT,WBC 8.3 K/uL (3.2-11.0)
[2025-03-25 08:50] LABS: ANION GAP 9.2 mmol/L (5.0-14.0); CALCIUM 9.4 mg/dL (8.5-10.1); CREATININE 0.9 mg/dL (0.6-1.0); EST CRCL DRUG DOSING (CG) 61.86 mL/min; POTASSIUM,K 3.8 mmol/L (3.6-5.2)
[2025-03-25] MEDS: Scopalamine 1mg/3day Transdermal Patch TOP SCH (08:50)
[2025-03-25] MEDS: Lactated Ringers 1,000 ML IV SCH (09:02)
[2025-03-25] MEDS: Nozin Nasal Sanitizer NASBOTH ONE (09:09)
[2025-03-25] MEDS: ceFAZolin 2 GM in Premix Bag 1 BAG IV ONE (09:25)
[2025-03-25] MEDS: Bupivacaine 0.5% 30 ML SDV ONE (09:55)
[2025-03-25] MEDS ORDERED: Sugammadex Sodium 200 MG/2 ML VIAL IV ONE (10:04)
[2025-03-25 11:29] VITALS: PULSE 70
[2025-03-25 11:57] VITALS: BP 104/59
== END 2025-03-25 12:20 | disposition home or self-care (01) ==
LOC: JP.SDS 08:01
PROVIDERS: ATTEND Specialist
DX: S83.231A Complex tear of medial meniscus, current injury, right knee, initial encounter (principal); M94.261 Chondromalacia, right knee; I10 Essential (primary) hypertension; K21.9 Gastro-esophageal reflux disease without esophagitis; E11.9 Type 2 diabetes mellitus without complications; X58.XXXA Exposure to other specified factors, initial encounter
CPT/HCPCS: 01400; 29881; 36415; 80048; 81025; 85027; 93005; 93010; A9270; J0330; J0665; J0690; J1100; J1596; J2405; J2704; J2710; J3010; J7120; J3490